=== PATIENT | female | born 1975 | race Caucasian/White ===

== ENCOUNTER → 2017-10-09 | Outpatient (CLI) | payer BC ==
[2015-09-23 07:20] VITALS: BP 116/77
[~2017-10-09] MED LIST: HYDR-971 PO
--- NOTE | 2017-10-09 13:19 | RAD ---
Right knee, 2 views, 10/09/2017: History: Lateral knee pain No fracture or dislocation is identified. No significant arthritic change is seen. There is no radiographic evidence of a significant joint effusion. IMPRESSION: No significant right knee abnormality is detected.
== END | disposition home or self-care (01) ==
LOC: PMG 12:46
PROVIDERS: ATTEND Nurse Practitioner Family
DX: M25.561 Pain in right knee (principal); F17.200 Nicotine dependence, unspecified, uncomplicated
CPT/HCPCS: 73560

== ENCOUNTER 2017-12-27 09:06 | Emergency (ER) | payer BC ==
[~2017-12-27] VITALS: Ht 162.6 cm; Wt 90.7 kg
--- NOTE | 2017-12-27 09:45 | PHYS DOC ---
Past History Past Medical History: Other Additional Past Medical Histor: back pain Past Surgical History: Other Additional Past Surgical Histo: lumbar surgery Smoking: Cigarettes Alcohol Use: None Drug Use: None Adult General Chief Complaint Chief Complaint: BACK PAIN OR INJURY [facility] 42-year-old female patient with history of back surgery 2 complaining of left lower back pain with radiation to left lower quadrant since this morning that did not get better with 2 [place]. Patient states the pain does not radiate to left lower extremity and denies focal neuro deficit, fever and chills, nausea and vomiting, abdominal pain, urinary symptom. Patient states her pain is different from her usual back pain and rated her pain 8 over 10. Patient denies vaginal bleeding and discharge and . Review of Systems Review of Systems Constitutional: Denies fever or chills [] Eyes: Denies change in visual acuity, redness, or eye pain [] HENT: Denies nasal congestion or sore throat [] Respiratory: Denies cough or shortness of breath [] Cardiovascular: No additional information not addressed in HPI [] GI: Denies abdominal pain, nausea, vomiting, bloody stools or diarrhea [] : Denies dysuria or hematuria [] Musculoskeletal: Reports back pain, denies joint pain [] Integument: Denies rash or skin lesions [] Neurologic: Denies headache, focal weakness or sensory changes [] Endocrine: Denies polyuria or polydipsia [] All other systems were reviewed and found to be within normal limits, except as documented in this note. Allergies Allergies Allergies Coded Allergies Type Severity Reaction Last Updated Verified No Known Drug Allergies 09/23/15 No Physical Exam Physical Exam Constitutional: Well developed, well nourished, mild distress, non-toxic appearance. [] HENT: Normocephalic, atraumatic Eyes: PERRLA, EOMI, conjunctiva normal, no discharge. [] Neck: Normal range of motion, no tenderness, supple, no stridor. [] Cardiovascular:Heart rate regular rhythm, no murmur [] Lungs & Thorax: Bilateral breath sounds clear to auscultation [] Abdomen: Bowel sounds normal, soft, no tenderness, no masses, no pulsatile masses. [] Skin: Warm, dry, no erythema, no rash. [] Back: No deformity or midline tenderness, left paraspinal muscle spasm Extremities: No tenderness, no cyanosis, no clubbing, ROM intact, no edema. [] Neurologic: Alert and oriented X 3, normal motor function, normal sensory function, no focal deficits noted. [] Psychologic: Affect normal, judgement normal, mood normal. [] Current Patient Data Vital Signs Vital Signs Date Time Temp Pulse Resp B/P (MAP) Pulse Ox O2 Delivery O2 Flow Rate FiO2 12/27/17 09:19 98.4 98 22 98 EKG EKG [] Radiology/Procedures Radiology/Procedures [] [address] [address] IMAGING REPORT Signed PATIENT: NESTOR NAVARRO ACCOUNT: [id number] : 1975 LOCATION: ER AGE: 42 SEX: F EXAM STATUS: REG ER ORD. PHYSICIAN: AUDREY MIN MD REASON: left flank pain PROCEDURE: CT ABDOMEN PELVIS WO CONTRAST CT study abdomen and pelvis without contrast Clinical indications: Left flank pain. Injured back surgery. TECHNIQUE: Noncontrast helical CT scanning of abdomen and pelvis was performed. Without contrast, the sensitivity to detect organ pathology and GI tract pathology is decreased. PQRS compliance Statement One or more of the following individualized dose reduction techniques were utilized for this study: 1. Automated exposure control 2. Adjustment of the mA and/or kV according to patient size 3. Use of iterative reconstruction technique COMPARISON: None available. FINDINGS: The liver and spleen and pancreas are homogeneous in appearance on this noncontrast study. The gallbladder is normal and no extrahepatic biliary ductal dilatation is seen. No adrenal mass is evident. No renal stone or ureteral stone or hydronephrosis or hydroureter is seen on either side. No perinephric inflammatory change or free fluid is evident. No focal aneurysmal dilatation of the abdominal aorta is seen. No enlarged abdominal or pelvic lymphadenopathy is evident. The urinary bladder wall is smooth. No uterine mass is evident. No dominant ovarian cyst or mass is seen. The appendix is normal. The terminal ileum is unremarkable. No obstructive bowel pattern is evident. No free air or free fluid or inflammatory change is evident. No osteolytic process is seen. No lung base infiltrate is evident. IMPRESSION: No acute abnormality of the abdomen or pelvis. Specifically, no urinary tract stone or hydronephrosis or hydroureter is seen. Electronically signed by: Randy Nuñez MD (12/27/2017 10:37 AM) [facility] Course & Med Decision Making Course & Med Decision Making Pertinent Labs and Imaging studies reviewed. (See chart for details) Evaluation of patient in ER showed 42-year-old female patient with complaining of left lower back pain that getting force with movement. Patient had unremarkable CT abdomen and pelvis and lumbar spine. UA showed microscopic hematuria. Patient treated with Toradol and felt better. Patient instructed to follow up with her primary care physician for evaluation of microscopic hematuria. [] Dragon Disclaimer Dragon Disclaimer This electronic medical record was generated, in whole or in part, using a voice recognition dictation system. Departure Departure: Impression: Primary Impression: Acute lumbosacral myofascial strain Additional Impressions: Microscopic hematuria Tobacco abuse Tobacco abuse counseling Disposition: HOME, SELF-CARE Condition: IMPROVED Referrals: RIGOBERTO ARREOLA APRN (PCP) Patient Instructions: Lumbosacral Strain, Smoking Cessation Additional Instructions: Drink plenty of liquids Follow-up with your primary care physician in 3-5 days Return to ER if not getting better Apply ice on the affected area Scripts Hydrocodone Bit/Acetaminophen (NORCO 5-325 TABLET) 1 Each Tablet 1 TAB PO PRN Q6HRS Y for PAIN, #14 TAB 0 Refills Prov: AUDREY MIN MD 12/27/17 Cyclobenzaprine Hcl (CYCLOBENZAPRINE HCL) 10 Mg Tablet 1 TAB PO TID, #30 TAB Prov: AUDREY MIN MD 12/27/17 Problem Qualifiers AUDREY MIN MD Dec 27, 2017 09:45
[2017-12-27] MEDS ORDERED: KETOROLAC 60 MG/2 ML VIAL. IM ONE (10:00)
--- NOTE | 2017-12-27 10:40 | RAD ---
CT study abdomen and pelvis without contrast Clinical indications: Left flank pain. Injured back surgery. TECHNIQUE: Noncontrast helical CT scanning of abdomen and pelvis was performed. Without contrast, the sensitivity to detect organ pathology and GI tract pathology is decreased. PQRS compliance Statement One or more of the following individualized dose reduction techniques were utilized for this study: 1. Automated exposure control 2. Adjustment of the mA and/or kV according to patient size 3. Use of iterative reconstruction technique COMPARISON: None available. FINDINGS: The liver and spleen and pancreas are homogeneous in appearance on this noncontrast study. The gallbladder is normal and no extrahepatic biliary ductal dilatation is seen. No adrenal mass is evident. No renal stone or ureteral stone or hydronephrosis or hydroureter is seen on either side. No perinephric inflammatory change or free fluid is evident. No focal aneurysmal dilatation of the abdominal aorta is seen. No enlarged abdominal or pelvic lymphadenopathy is evident. The urinary bladder wall is smooth. No uterine mass is evident. No dominant ovarian cyst or mass is seen. The appendix is normal. The terminal ileum is unremarkable. No obstructive bowel pattern is evident. No free air or free fluid or inflammatory change is evident. No osteolytic process is seen. No lung base infiltrate is evident. IMPRESSION: No acute abnormality of the abdomen or pelvis. Specifically, no urinary tract stone or hydronephrosis or hydroureter is seen. Electronically signed by: Randy Nuñez MD (12/27/2017 10:37 AM) [facility]
[2017-12-27 10:57] LABS: BACTERIA,URINE 0 /HPF (0-FEW); BILIRUBIN,URINE NEG (NEG); CLARITY,URINE CLEAR; COLOR,URINE YELLOW; GLUCOSE,URINE NEG (NEG); NITRITE,URINE NEG (NEG); SQUAMOUS EPITHELIAL CELL,UR FEW /LPF; UROBILINOGEN,URINE 0.2 mg/dL (0.2 mg/dL); WBC,URINE 0 /HPF (0-4)
--- NOTE | 2017-12-27 10:57 | RAD ---
PQRS Compliance Statement: One or more of the following individualized dose reduction techniques were utilized for this examination: 1. Automated exposure control 2. Adjustment of the mA and/or kV according to patient size 3. Use of iterative reconstruction technique CT LUMBAR SPINE WO CONTRAST Clinical Indication: LOW BACK PAIN, HX OF SURGERY Comparison: CT abdomen pelvis without contrast, same day. Lumbar spine radiographs, February 29, 2016. TECHNIQUE: Using source images from the CT abdomen and pelvis, small [id number], axial, coronal, and sagittal reconstructions of the lumbar spine are made. Findings: For paraspinal soft tissue findings please refer to the CT abdomen and pelvis report. There is posterior fusion of L4-L5. There is L4/L5 disc space narrowing. There is interbody spacer. There is minimal grade 1 retrolisthesis of L3 on L4, unchanged. Alignment is otherwise maintained. There is disc space narrowing and vacuum disc phenomenon of L3/L4. There is no acute compression fracture. Transverse processes are intact. Lower lumbar facet hypertrophy. L1/L2: Facet hypertrophy and ligamentum flavum redundancy. Central canal and neural foramina are patent. L2/L3: There is small posterior disc osteophyte complex, moderate facet hypertrophy and moderate ligamentum flavum redundancy. Prominent posterior epidural fat. Findings combine to produce mild to moderate central canal stenosis. Neural foramina are patent. L3/L4: Question right hemilaminotomy. There is broad-based posterior disc osteophyte complex. Moderate facet hypertrophy. Central canal is adequate. Neural foramina are patent. L4/L5: Central canal is patent. Neural foraminal narrowing is probably mild bilaterally. L5/S1: There is posterior disc osteophyte complex. There is severe facet hypertrophy and mild ligamentum flavum redundancy. Central canal stenosis appears moderate but axial images are somewhat out of the plane of the disc space. No more than mild bilateral neural foraminal narrowing. IMPRESSION: 1. No acute compression fracture. 2. Posterior fusion of L4-L5. 3. Individual levels detailed above. Electronically signed by: Darnell Lara MD (12/27/2017 10:54 AM) [id number]
[2017-12-27 11:00] VITALS: BP 140/52
[2017-12-27] MEDS ORDERED: HYDR-971 PO (11:15)
[2017-12-27] MEDS ORDERED: CYCL-331 PO (11:15)
== END 2017-12-27 11:20 | disposition home or self-care (01) ==
LOC: ER 09:06
DX: S39.012A Strain of muscle, fascia and tendon of lower back, initial encounter (principal); R31.29 Other microscopic hematuria; F17.210 Nicotine dependence, cigarettes, uncomplicated; Z71.6 Tobacco abuse counseling; X58.XXXA Exposure to other specified factors, initial encounter; Y93.89 Activity, other specified; Y99.8 Other external cause status; Y92.89 Other specified places as the place of occurrence of the external cause
CPT/HCPCS: 72131; 74176; 81001; 96372; 99285; J1885

== ENCOUNTER → 2018-01-07 | Outpatient (CLI) | payer BC ==
[2017-12-27 11:00] VITALS: BP 140/52
[~2018-01-07] MED LIST changes: +CYCL-331 PO
--- NOTE | 2018-01-07 16:52 | RAD ---
Lumbar spine, 3 views, 01/07/2018: History: Pain Comparison is made to a study from 02/29/2016. There is a mild lumbar scoliosis. There are bilateral pedicle screws at L4 and L5 attached to longitudinally oriented posterior fixation rods. A partially radiopaque disc spacer is present at L4-5. There appears to be solid bony bridging at the disc space level. There is slight retrolisthesis at the L4-5 disc level, unchanged. Again noted is moderate degenerative disc disease at L3-4 and to a lesser degree at L2-3. No new abnormality is detected. IMPRESSION: 1. Stable postsurgical changes of previous spinal fusion and instrumentation at L4-5. 2. Moderate degenerative disc disease at L3-4 and L2-3.
== END | disposition home or self-care (01) ==
LOC: RAD 16:12
PROVIDERS: ATTEND Nurse Practitioner Family
DX: M51.36 Other intervertebral disc degeneration, lumbar region (principal); M47.816 Spondylosis without myelopathy or radiculopathy, lumbar region; Z98.1 Arthrodesis status
CPT/HCPCS: 72100

== ENCOUNTER → 2018-01-18 | Outpatient (CLI) | payer BC ==
[2017-12-27 11:00] VITALS: BP 140/52
--- NOTE | 2018-01-18 11:41 | RAD ---
DATE: 01/18/2018 EXAM: MAMMO KEVIN [facility]THA [facility]ON, BREAST LEFT HISTORY: Left axillary lump COMPARISON: Baseline study This study was interpreted with the benefit of Computerized Aided Detection (CAD). The breast parenchyma shows scattered fibroglandular densities. Breast parenchyma level B. FINDINGS: 2-D and 3-D tomosynthesis imaging was performed in CC and MLO projections. The fibroglandular tissues are asymmetric with increased density in the upper outer quadrant of the left breast compared of the right. This probably represents a normal variant in the fibroglandular pattern in this patient. No discrete mass is seen in this region on the tomosynthesis images. The residual fibroglandular densities are seen somewhat nodular in character. A 3 mm smooth discrete nodule nodule is noted medially in the left breast at approximately the 9:00 location as best visualized on left CC kevin image 19. No suspicious microcalcifications are evident in either breast. There are benign-appearing lymph node type densities in both axillary regions. A BB was placed on the skin surface in the area of palpable concern in the left axilla. There are skinfolds in this region. No mass is identified. Left breast ultrasound, 01/18/2018: We first targeted the area of clinical concern in the left axilla. The axillary artery and vein were visualized at this level. No mass is identified. We then targeted the upper outer quadrant of the left breast where asymmetric tissues were evident on the mammograms. Heterogeneous fibroglandular shadows are present in this region. No cystic or solid breast mass is seen. We then targeted the left breast centered at the 9:00 location where a small, smooth nodule was noted on the mammograms. No sonographic correlate for the small nodule could be detected. IMPRESSION: 1. No mammographic or sonographic abnormality was seen in the area of clinical concern in the left axilla. Clinical surveillance is suggested. 2. Mild asymmetric prominence of the fibroglandular tissues in the upper outer quadrant left breast most likely represents a normal mammographic variant in this patient. 3. Small nodule at the 3:00 location identified in the left breast mammographically, with no sonographic correlate. Mammographic surveillance consisting of follow-up left mammography in 6 months and bilateral mammography at one year is suggested. BI-RADS CATEGORY: 3 PROBABLY BENIGN FINDING(S)-SHORT INTERVAL FOLLOW-UP SUGGESTED RECOMMENDED FOLLOW-UP: 6M 6 MONTH FOLLOW-UP PQRS compliance statement: Patient information was entered into a reminder system with a target due date for the next mammogram. Mammography is a sensitive method for finding small breast cancers, but it does not detect them all and is not a substitute for careful clinical examination. A negative mammogram does not negate a clinically suspicious finding and should not result in delay in biopsying a clinically suspicious abnormality. "Our facility is accredited by the [employer] Mammography Program."
[2018-01-18 12:29] LABS: BASO # 0.1 x10^3/uL (0.0-0.2); BASO % 1 % (0-3); EOS # 0.4 x10^3/uL (0.0-0.7); EOS % 5 % (0-3); HEMATOCRIT 43.4 % (36.0-47.0); HEMOGLOBIN 14.7 g/dL (12.0-15.5); LYMPH # 2.1 x10^3/uL (1.0-4.8); LYMPH % 24 % (24-48); MEAN CORPUSCULAR HEMOGLOBIN 30 pg (25-35); MEAN CORPUSCULAR HGB CONC 34 g/dL (31-37); MEAN CORPUSCULAR VOLUME 89 fL (79-100); MONO # 0.7 x10^3/uL (0.0-1.1); MONO % 8 % (0-9); NEUT # 5.5 x10^3uL (1.8-7.7); NEUT % 62 % (31-73); PLATELET COUNT 279 x10^3/uL (140-400); RED BLOOD COUNT 4.88 x10^6/uL (3.50-5.40); RED CELL DISTRIBUTION WIDTH 14.3 % (11.5-14.5); WHITE BLOOD COUNT 8.9 x10^3/uL (4.0-11.0)
[2018-01-18 12:37] LABS: BILIRUBIN,URINE NEG (NEG); CLARITY,URINE CLEAR; COLOR,URINE STRAW; GLUCOSE,URINE NEG (NEG); NITRITE,URINE NEG (NEG); UROBILINOGEN,URINE 0.2 mg/dL (0.2 mg/dL)
[2018-01-18 12:42] LABS: BACTERIA,URINE FEW /HPF (0-FEW); RBC,URINE OCC /HPF (0-2); SQUAMOUS EPITHELIAL CELL,UR FEW /LPF; WBC,URINE 0 /HPF (0-4)
[2018-01-18 12:48] LABS: ALBUMIN 3.5 g/dL (3.4-5.0); ALBUMIN/GLOBULIN RATIO 0.8 (1.0-1.7); CALCIUM 8.7 mg/dL (8.5-10.1); CREATININE 0.7 mg/dL (0.6-1.0); GFR 92.7; TOTAL BILIRUBIN 0.4 mg/dL (0.2-1.0); TOTAL PROTEIN 7.8 g/dL (6.4-8.2)
[2018-01-19 10:35] LABS: THYROID STIM HORMONE (TSH) 1.296 uIU/mL (0.358-3.740)
== END | disposition home or self-care (01) ==
LOC: MAMMO 09:40
PROVIDERS: ATTEND Surgery
DX: N64.89 Other specified disorders of breast (principal)
CPT/HCPCS: 36415; 76641; 77066; 80053; 80061; 81001; 84443; 85025; G0279; 77062

== ENCOUNTER → 2018-01-29 | Outpatient (CLI) | payer BC ==
--- NOTE | 2018-01-29 14:54 | RAD ---
Lumbar spine, 3 views, 01/29/2018: HISTORY: Low back pain, herniated disc repair Comparison is made to a study from 01/07/2018. There is a minimal unchanged lumbar scoliosis. Bilateral pedicle screws remain in place at L4 and L5 attached to longitudinally oriented posterior fixation rods. A partially radiopaque disc spacer remains in place at the L4-5 level. There is slight unchanged retrolisthesis at L4-5. There is moderate degenerative disc disease at L3-4 with a vacuum disc phenomena, endplate sclerosis and moderate marginal spurring. There is a lesser degree of degenerative disc disease at L2-3. No fracture or new bony abnormality is detected. The paraspinous soft tissues are unremarkable. IMPRESSION: 1. Stable postsurgical findings at L4-5. 2. Moderate multilevel degenerative change. 3. No acute abnormality is detected. Electronically signed by: Albert Carr MD (01/29/2018 2:51 PM) [facility]
== END | disposition home or self-care (01) ==
LOC: PMG 12:40
PROVIDERS: ATTEND Nurse Practitioner Family
DX: M51.26 Other intervertebral disc displacement, lumbar region (principal); M41.86 Other forms of scoliosis, lumbar region
CPT/HCPCS: 72100

== ENCOUNTER → 2018-12-12 | Outpatient (CLI) | payer BC ==
[~2018-12-12] MED LIST changes: +HYDR-3165 PO; -HYDR-971 PO
--- NOTE | 2018-12-12 11:10 | RAD ---
EXAM: Right knee, 3 views. HISTORY: Pain COMPARISON: None. FINDINGS: 3 views of the right knee are obtained. There is no fracture, dislocation or subluxation. There is no joint effusion. IMPRESSION: No acute osseous finding. Electronically signed by: Juanita Owusu MD (12/12/2018 11:07 AM) [facility]
== END | disposition home or self-care (01) ==
LOC: PMG 10:36
PROVIDERS: ATTEND Family Medicine
DX: M25.561 Pain in right knee (principal)
CPT/HCPCS: 73562